=== PATIENT | male | born 1955 | race Hispanic/Latino ===

== ENCOUNTER 2017-08-04 18:39 | Emergency (ER) | payer OTHER, SELFPAY ==
--- NOTE | 2017-08-04 19:50 | RAD REPORT ---
EXAM DESCRIPTION: Tiarat Pa And Lat (2 Views)08/04/2017 7:28 pm CLINICAL HISTORY: Cough COMPARISON: None FINDINGS: Moderate reticular opacities are present within the right lung. Mild reticular opacities within the left lung are seen. The heart is mildly enlarged IMPRESSION: Bilateral reticular lung opacities have more of the appearance of being chronic than ac [place]. Followup chest x-ray in 1 month would be helpful for re-evaluation
--- NOTE | 2017-08-04 19:55 | RAD REPORT ---
EXAM DESCRIPTION: US - Extremity Nonvascular Limited - 08/04/2017 7:21 pm CLINICAL HISTORY: Right chest mass COMPARISON: None FINDINGS: The patient has a palpable area inferior to the right axilla. Ultrasound demonstrates a 3 x 0.5 x 2.9 centimeter fluid collection. IMPRESSION: 3 centimeter fluid collection inferior to the right axilla has a nonspecific appearance. It could indicate cellulitis, old hematoma or seroma. If on physical examination the mass enlarges t hen CT chest would be recommended
--- NOTE | 2017-08-04 21:33 | RAD REPORT ---
EXAM DESCRIPTION: CT - Thorax W/ Con - 08/04/2017 9:14 pm CLINICAL HISTORY: Chest mass COMPARISON: August 04, 2017 ultrasound TECHNIQUE: Computed axial tomography of the chest was obtained. 100 cc Isovue 300 was administered i ntravenously. All CT scans are performed using dose optimization technique as appropriate and may include automated exposure control or mA/KV adjustment according to patient size. FINDINGS: Diffuse edema is present within the right axilla. An abscess is not seen. A lymph node is noted. No mediastinal or hilar lymphadenopathy is seen. A pleural effusion is not present. A pericardial effusion is not present. Mild to moderate ground-glass opacities are present within the right lung. Honeycombing within the pati ngs right greater than left is seen. Mild ground-glass opacities within the left lung are present. IMPRESSION: Mild to moderate ground-glass opacities within the lungs indicative of an alveolitis. Moderate right and mild left honeycombing within the lungs has the appearance of pulmonary fibrosis. Diffuse edema within the subcutaneous tissues of the right axilla could either indicate a cellulitis or lymphangitic obstruction
--- NOTE | 2017-08-04 21:38 | ER ---
Nurse's Notes [facility] Name: Jenna Ruiz Age: 62 yrs Sex: Male : 1955 Arrival Date: 08/04/2017 Time: 18:44 Bed 14 Private MD: Diagnosis: Pulmonary fibrosis, unspecified;Bronchiectasis Presentation: 08/04 18:45 Presenting complaint: Patient states: he was taking a shower and has bump under arm, tw2 noticed it last night. Transition of care: patient was not received from another setting of care. Onset of symptoms was August 04, 2017. Risk Assessment: Do you want to hurt yourself or someone else? Patient reports no desire to harm self or others. Initial Sepsis Screen: Does the patient meet any 2 criteria? No. Patient's initial sepsis screen is negative. Does the patient have a suspected source of infection? No. Patient's initial sepsis screen is negative. Care prior to arrival: None. 18:45 Method Of Arrival: Ambulatory tw2 18:45 Acuity: WILLARD 3 tw2 Triage Assessment: 19:00 General: Appears in no apparent distress. comfortable, Behavior is calm, cooperative, bp appropriate for age. Historical: - Allergies: 18:46 No Known Allergies; tw2 - PMHx: 18:46 Hernia; tw2 - Immunization history:: Adult Immunizations up to date. - Social history:: Smoking status: Patient/guardian denies using tobacco. - Ebola Screening: : Patient denies travel to an Ebola-affected area in the 21 days before illness onset. Screenin:00 Abuse screen: Denies threats or abuse. Denies injuries from another. Nutritional ch screening: No deficits noted. Tuberculosis screening: No symptoms or risk factors identified. Fall Risk None identified. Assessment: 19:00 Reassessment: Patient appears in no apparent distress at this time. Patient and/or ch family updated on plan of care and expected duration. Pain level reassessed. Patient is alert, oriented x 3, equal unlabored respirations, skin warm/dry/pink. Pain: Complains of pain in right axilla Pain currently is 2 out of 10 on a pain scale. Neuro: No deficits noted. Respiratory: Airway is patent Respiratory effort is even, unlabored, Breath sounds are clear bilaterally. Derm: Skin is pink, warm \T\ dry. 19:05 Reassessment: RECD REPORT FROM SOCORRO MORILLO. 62YO HM P/W R AXILLARY MASS. PT TO U/S AT bp THIS TIME. NO DRAINAGE OR BLEEDING NOTED, VS STABLE. 19:35 Reassessment: PT RETURNED FROM U/S, RESULTS PENDING. bp 21:44 Reassessment: PT D/C HOME WITH FAMILY, DX WITH BRONCHIECTASIS AND PULMONARY FIBROSIS, bp TO F/U WITH PULMONOLOGY. Vital Signs: 18:46 BP 130 / 82; Pulse 65; Resp 17; Temp 97.3(O); Pulse Ox 96% on R/A; tw2 19:51 BP 139 / 74; Pulse 65; Resp 14; Pulse Ox 97% ; bp 21:30 BP 131 / 81; Pulse 67; Resp 15; Pulse Ox 97% ; bp ED Course: 18:44 Patient arrived in ED. mr 18:46 Triage completed. tw2 18:46 Arm band placed on. tw2 18:49 Galileo Hutson MD is Attending Physician. gs 18:51 Carri Ny [facility]-C [facility]. snw 19:00 No apparent distress. Resting quietly. ch 19:00 Patient has correct armband on for positive identification. Placed in gown. Bed in low ch position. Call light in reach. Side rails up X 1. Adult w/ patient. 19:00 No provider procedures requiring assistance completed. ch 19:06 Patrick Shah, RN is Primary Nurse. bp 19:21 US Extrmty Nonvasular Limited In Process Unspecified. EDMS 19:27 X-ray completed. Patient tolerated procedure well. jb2 19:28 Patient moved back from radiology. jb2 19:28 Chest Pa And Lat (2 Views) XRAY In Process Unspecified. EDMS 20:25 Radiology exam delayed due to lab results not completed at this time. (BUN/Creatinine). mw3 20:28 Inserted saline lock: 20 gauge in right forearm, using aseptic technique. Blood bp collected. 21:[address] nj 21:14 CT completed. Patient tolerated procedure well. Patient moved back from CT. nj 21:15 CT Chest W/ Con In Process Unspecified. EDMS 21:36 Trevon Metcalf MD is Referral Physician. snw 21:45 IV discontinued, intact, bleeding controlled, No redness/swelling at site. Pressure bp dressing applied. Administered Medications: 21:40 Drug: LevaQUIN 500 mg Route: PO; bp 21:53 Follow up: Response: Medication administered at discharge. bp 21:40 Drug: Decadron 8 mg Route: PO; bp 21:53 Follow up: Response: Medication administered at discharge. bp 21:52 Not Given (PT D/C PRIOR TO ORDER): Ativan 1 mg IVP once bp Outcome: 21:38 Discharge ordered by . karina 21:55 Discharged to home ambulatory, with family. bp 21:55 Condition: stable 21:55 Discharge instructions given to patient, Instructed on discharge instructions, follow up and referral plans. medication usage, Demonstrated understanding of instructions, follow-up care, medications, Prescriptions given X 1. 21:56 Patient left the ED. bp Signatures: Dispatcher [employer] EDMS Socorro Mederos, RN RN Carri Ny, NURSE SUPERVISOR-C NURSE SUPERVISOR-Csnw Va Soto mr JaimeAbdullahi jb2 Domenica Blackwood RN RN tw2 Kirit Méndez Gregory, MD MD gs Peltier, Brian, RN RN Vale Lomeli mw3
--- NOTE | 2017-08-04 21:38 | EDPHYS ---
Physician Documentation [facility] Name: Jenna Ruiz Age: 62 yrs Sex: Male : 1955 Arrival Date: 08/04/2017 Time: 18:44 Bed 14 Private MD: ED Physician Galileo Hutson HPI: 08/04 19:08 This 62 yrs old Male presents to ER via Ambulatory with complaints of Bump snw under arm. 19:08 the patient presents with a swollen area of the right axilla. Description: The affected snw area is moderate sized, well demarcated. Onset: The symptoms/episode began/occurred suddenly. Possible cause(s): unknown. Associated signs and symptoms: The patient has no apparent associated signs or symptoms. Severity of symptoms: At their worst the symptoms were very mild. The patient has not experienced similar symptoms in the past. The patient has not recently seen a physician. Historical: - Allergies: 18:46 No Known Allergies; tw2 - PMHx: 18:46 Hernia; tw2 - Immunization history:: Adult Immunizations up to date. - Social history:: Smoking status: Patient/guardian denies using tobacco. - Ebola Screening: : Patient denies travel to an Ebola-affected area in the 21 days before illness onset. ROS: 19:07 Constitutional: Negative for fever, chills, and weight loss, Eyes: Negative for injury, snw pain, redness, and discharge, ENT: Negative for injury, pain, and discharge, Neck: Negative for injury, pain, and swelling, Cardiovascular: Negative for chest pain, palpitations, and edema, Respiratory: Negative for shortness of breath, cough, wheezing, and pleuritic chest pain, Abdomen/GI: Negative for abdominal pain, nausea, vomiting, diarrhea, and constipation, Back: Negative for injury and pain, : Negative for injury, bleeding, discharge, and swelling, MS/Extremity: Negative for injury and deformity, Neuro: Negative for headache, weakness, numbness, tingling, and seizure, Psych: Negative for depression, anxiety, suicide ideation, homicidal ideation, and hallucinations. 19:07 Skin: Positive for swelling, of the right axilla. Exam: 19:05 Constitutional: This is a well developed, well nourished patient who is awake, alert, snw and in no acute distress. Head/Face: Normocephalic, atraumatic. Eyes: Pupils equal round and reactive to light, extra-ocular motions intact. Lids and lashes normal. Conjunctiva and sclera are non-icteric and not injected. Cornea within normal limits. Periorbital areas with no swelling, redness, or edema. ENT: Nares patent. No nasal discharge, no septal abnormalities noted. Tympanic membranes are normal and external auditory canals are clear. Oropharynx with no redness, swelling, or masses, exudates, or evidence of obstruction, uvula midline. Mucous membranes moist. Neck: Trachea midline, no thyromegaly or masses palpated, and no cervical lymphadenopathy. Supple, full range of motion without nuchal rigidity, or vertebral point tenderness. No Meningismus. Chest/axilla: Normal chest wall appearance and motion. Nontender with no deformity. No lesions are appreciated except to right axilla, fluid like edematous area that popped up suddenly per pt report, mildly tender, feels well demarcated Cardiovascular: Regular rate and rhythm with a normal S1 and S2. No gallops, murmurs, or rubs. Normal PMI, no JVD. No pulse deficits. Respiratory: Lungs have equal breath sounds bilaterally, clear to auscultation and percussion. No rales, rhonchi or wheezes noted. No increased work of breathing, no retractions or nasal flaring. Abdomen/GI: Soft, non-tender, with normal bowel sounds. No distension or tympany. No guarding or rebound. No evidence of tenderness throughout. Back: No spinal tenderness. No costovertebral tenderness. Full range of motion. Skin: Warm, dry with normal turgor. Normal color with no rashes, no lesions, and no evidence of cellulitis. MS/ Extremity: Pulses equal, no cyanosis. Neurovascular intact. Full, normal range of motion. Neuro: Awake and alert, GCS 15, oriented to person, place, time, and situation. Cranial nerves II-XII grossly intact. Motor strength 5/5 in all extremities. Sensory grossly intact. Cerebellar exam normal. Normal gait. Vital Signs: 18:46 BP 130 / 82; Pulse 65; Resp 17; Temp 97.3(O); Pulse Ox 96% on R/A; tw2 19:51 BP 139 / 74; Pulse 65; Resp 14; Pulse Ox 97% ; bp 21:30 BP 131 / 81; Pulse 67; Resp 15; Pulse Ox 97% ; bp MDM: 18:54 Patient medically screened. snw 21:41 Data reviewed: vital signs, nurses notes. Data interpreted: Pulse oximetry: on room air snw is 97 %. Interpretation: normal. Counseling: I had a detailed discussion with the patient and/or guardian regarding: the historical points, exam findings, and any diagnostic results supporting the discharge/admit diagnosis, the presence of at least one elevated blood pressure reading (>120/80) during this emergency department visit, lab results, radiology results, the need for outpatient follow up, to return to the emergency department if symptoms worsen or persist or if there are any questions or concerns that arise at home. Special discussion: Based on the history and exam findings, there is no indication for further emergent testing or inpatient evaluation. I discussed with the patient/guardian the need to see the primary care provider for further evaluation of the symptoms. I discussed with the patient/guardian the need to see the labor operator for further evaluation of the symptoms. 08/04 20:21 Order name: Creatinine for Radiology; Complete Time: 21:12 bp 08/04 19:02 Order name: Chest Pa And Lat (2 Views) XRAY; Complete Time: 20:11 snw 08/04 19:02 Order name: US Extrmty Nonvasular Limited; Complete Time: 20:11 snw 08/04 20:12 Order name: CT Chest W/ Con; Complete Time: 21:34 snw Administered Medications: 21:40 Drug: LevaQUIN 500 mg Route: PO; bp 21:53 Follow up: Response: Medication administered at discharge. bp 21:40 Drug: Decadron 8 mg Route: PO; bp 21:53 Follow up: Response: Medication administered at discharge. bp 21:52 Not Given (PT D/C PRIOR TO ORDER): Ativan 1 mg IVP once bp Disposition: 08/04/17 21:38 Discharged to Home. Impression: Pulmonary fibrosis, unspecified, Bronchiectasis. - Condition is Stable. - Discharge Instructions: Chronic Bronchitis, Bronchiectasis. - Prescriptions for Levaquin 500 mg Oral Tablet - take 1 tablet by ORAL route once daily for 7 days; 7 tablet. - Medication Reconciliation Form, Thank You Letter, Antibiotic Education, Prescription Opioid Use form. - Follow up: Trevon Metcalf MD; When: 1 week; Reason: Recheck today's complaints, Continuance of care, Re-evaluation by your physician. Addendum: 08/06/2017 21:59 Co-signature as Attending Physician, Galileo Hutson MD. g s Signatures: Dispatcher [employer] EDMS Carri Ny, CYBER INTEL PLANNER-C CYBER INTEL PLANNER-Csnw Domenica Blackwood, RN RN tw2 Galileo Hutson MD MD Patrick Shah, RN RN bp Corrections: (The following items were deleted from the chart) 08/04 21:56 21:38 08/04/2017 21:38 Discharged to Home. Impression: Pulmonary fibrosis, unspecified; bp Bronchiectasis. Condition is Stable. Forms are Medication Reconciliation Form, Thank You Letter, Antibiotic Education, Prescription Opioid Use. Follow up: Trevon Metcalf; When: 1 week; Reason: Recheck today's complaints, Continuance of care, Re-evaluation by your physician. snw
[2017-08-04] MEDS ORDERED: DEXAMETHASONE 4 MG TAB ONE (21:47)
[2017-08-04] MEDS ORDERED: levoFLOXacin 500 MG TAB ONE (21:48)
== END 2017-08-04 21:56 | disposition home or self-care (01) ==
LOC: ER 18:39
DX: J84.10 Pulmonary fibrosis, unspecified (principal); J47.9 Bronchiectasis, uncomplicated
CPT/HCPCS: 36415; 71046; 71260; 76882; 99284; Q9967